=== PATIENT | male | born 1985 | race Caucasian/White ===

== ENCOUNTER 2019-12-10 21:05 | Emergency (ER) | payer BC ==
[~2019-12-10] VITALS: Ht 180.3 cm; Wt 86.2 kg
[2019-12-10] MEDS ORDERED: CITA20TA19 PO (21:12)
[2019-12-10] MEDS ORDERED: EMTR1TAB12 PO (21:12)
[2019-12-10] MEDS ORDERED: DUPI300S SQ (21:12)
--- NOTE | 2019-12-10 21:20 | NUR ---
Patient complaints of a sharp headache and nausea with vomiting
--- NOTE | 2019-12-10 21:23 | NUR ---
MD Davis at bedside for MSE
--- NOTE | 2019-12-10 21:29 | NUR ---
Patient left to CT at this time
[2019-12-10] MEDS ORDERED: IV NORMAL SALINE 1000 ML BAG IV ONE ×2 (21:30→23:15)
[2019-12-10] MEDS ORDERED: ONDANSETRON 4 MG/2 ML VIAL ONE (22:06)
[2019-12-10] MEDS ORDERED: ONDANSETRON 4 MG/2 ML VIAL IV ONE (22:15)
[2019-12-10 22:24] LABS: BASOPHILS # (AUTO) 0.1 K/uL (0.0-8.0); BASOPHILS % (AUTO) 0.6 % (0.0-2.0); EOSINOPHILS # (AUTO) 0.2 K/uL (0.0-0.7); EOSINOPHILS % (AUTO) 2.7 % (0.0-7.0); HEMATOCRIT 43.8 % (36.7-47.1); HEMOGLOBIN 14.7 g/dL (12.5-16.3); LYMPHOCYTES # (AUTO) 1.3 K/uL (20.0-40.0); LYMPHOCYTES % (AUTO) 15.1 % (20.5-51.5); MEAN CORPUSCULAR HEMOGLOBIN 29.4 uug (23.8-33.4); MEAN CORPUSCULAR HGB CONC 33 g/dL (32.5-36.3); MEAN CORPUSCULAR VOLUME 87.9 fL (73.0-96.2); MONOCYTES # (AUTO) 0.6 K/uL (2.0-10.0); MONOCYTES % (AUTO) 6.6 % (0.0-11.0); NEUTROPHILS # (AUTO) 6.6 K/uL (1.8-8.9); RED BLOOD CELL COUNT(AUTO) 4.99 MIL/uL (4.06-5.63); WHITE BLOOD COUNT (AUTO) 8.8 K/uL (3.6-10.2)
[2019-12-10 22:33] LABS: POTASSIUM 4.3 mmol/L (3.5-5.1)
[2019-12-10 22:38] LABS: BILIRUBIN,DIRECT 0.1 mg/dL (0.0-0.2); BILIRUBIN,TOTAL 0.7 mg/dL (0.2-1.0); TOTAL PROTEIN, SERUM 7.3 g/dL (6.4-8.2)
--- NOTE | 2019-12-10 23:00 | NUR ---
lumbar puncture performed at this time per MD Davis orders, consent signed
[2019-12-10 23:07] LABS: PLATELET COUNT (AUTO) 161 K/uL (152-348)
[2019-12-10] MEDS ORDERED: SWABABLE VALVE TRANSFER SET EA MC ONE (23:35)
[2019-12-10] MEDS ORDERED: IOHEXOL 350 100 ML INFUS..BTL ONE (23:35)
[2019-12-10] MEDS ORDERED: IV NORMAL SALINE 250 ML IV ONE (23:36)
--- NOTE | 2019-12-11 | NUR ---
Patient left for CTA at this time, consents signed
--- NOTE | 2019-12-11 00:14 | NUR ---
Patient returned from CTA at this time
[2019-12-11] MEDS ORDERED: ACETAMINOPHEN ES 500 MG TABLET ONE (01:06)
[2019-12-11] MEDS ORDERED: ACETAMINOPHEN ES 500 MG TABLET PO ONE (01:15)
--- NOTE | 2019-12-11 01:56 | NUR ---
patient noted resting inbed with eyes closed, no complaints of pain, vitals stable at this time
--- NOTE | 2019-12-11 03:20 | NUR ---
patient noted resting in bed with eyes closed, no complaints of pain, no signs of distress noted, vital signs stable
[2019-12-11 04:26] VITALS: BP 106/66
--- NOTE | 2019-12-11 04:32 | NUR ---
Patient discharged to home in stable condition. Noted Ambulating with steady gait. Written and verbal after care instructions given. All belongings taken with patient. IV discontinued. Patient verbalizes understanding of instructions. Stressed follow up or return to ER for worsening s/s.
== END 2019-12-11 04:33 | disposition home or self-care (01) ==
LOC: ER 21:10
DX: E86.0 Dehydration (principal); R51 Headache
CPT/HCPCS: 36415; 62270; 70450; 70496; 80048; 80076; 85025; 96374; 99285; J2405; Q9967; A4663; A9150; J7030; J7050